=== PATIENT | male | born 1980 | race African-American/Black ===

== ENCOUNTER 2017-04-26 14:29 | Inpatient (IN) | payer MEDICARE, BC ==
[2017-04-26 19:30] LABS: ADD MAN DIFF? NO
[2017-04-26 19:33] LABS: BASOPHILS % 0.4 % (0.0-2.0); EOSINOPHILS # 0.1 10^3/ul (0.0-0.5); EOSINOPHILS % 0.8 % (0.0-7.0); HEMOGLOBIN 10.8 g/dl (14.0-18.0); LYMPHOCYTES # 2.9 10^3/ul (0.8-2.9); LYMPHOCYTES % 34.9 % (15.0-51.0); MEAN CORPUSCULAR HEMOGLOBIN 25.1 pg (29.0-33.0); MEAN CORPUSCULAR HGB CONC 30.9 g/dl (32.0-37.0); MEAN CORPUSCULAR VOLUME 81.2 fl (82.0-101.0); MEAN PLATELET VOLUME 10.3 fl (7.4-10.4); MONOCYTE # 0.6 10^3/ul (0.3-0.9); MONOCYTES % 7.5 % (0.0-11.0); NEUTROPHIL # 4.7 10^3/ul (1.6-7.5); PLATELET COUNT 262 10^3/UL (140-415); RED BLOOD COUNT 4.31 10^6/ul (4.70-6.10); RED CELL DISTRIBUTION WIDTH 19.5 % (11.5-14.5)
[2017-04-26 19:33] LABS: WHITE BLOOD COUNT 8.4 10^3/ul (4.8-10.8)
[2017-04-26 20:29] LABS: AMMONIA 16 umol/l (9-30)
[2017-04-26 20:36] LABS: ALANINE AMINOTRANSFERASE 47 IU/L (13-69); ALBUMIN 3.1 g/dl (3.3-4.9); ALBUMIN/GLOBULIN RATIO 0.77; ALKALINE PHOSPHATASE 398 IU/L (42-121); ANION GAP 15 (8-16); ASPARTATE AMINO TRANSFERASE 33 IU/L (15-46); BILIRUBIN,INDIRECT 1.3 mg/dl (0-1.1); BILIRUBIN,TOTAL 1.3 mg/dl (0.2-1.3); BLOOD UREA NITROGEN 8 mg/dl (7-20); CALCIUM 8.4 mg/dl (8.4-10.2); CARBON DIOXIDE 25 mmol/L (21-31); CHLORIDE 99 mmol/L (97-110); CREATININE 0.73 mg/dl (0.61-1.24); GLUCOSE 307 mg/dl (70-220); POTASSIUM 4.6 mmol/L (3.5-5.1); SODIUM 134 mmol/L (135-144); TOTAL PROTEIN 7.1 g/dl (6.1-8.1)
[2017-04-26 20:38] LABS: ETHANOL < 10.0 mg/dl
[2017-04-26] MEDS ORDERED: METOPROLOL 25 MG TAB PO (21:30)
[2017-04-26] MEDS ORDERED: NACL 0.9% 3 ML SYG IV (21:30)
[2017-04-26] MEDS ORDERED: ASPIRIN (EC) 325 MG TAB PO (21:30)
[2017-04-26] MEDS ORDERED: HYDROCODONE/APAP (5/325) TAB PO (21:30)
[2017-04-26] MEDS ORDERED: HYDROmorphONE 0.5 MG/0.5 ML SYG IV (21:30)
[2017-04-26] MEDS ORDERED: ACETAMINOPHEN 325 MG TAB PO ×2 (21:30→22:00)
[2017-04-26] MEDS ORDERED: DOCUSATE SODIUM 100 MG CAP PO (21:30)
[2017-04-26] MEDS ORDERED: ONDANSETRON 4 MG INJ IV ×2 (21:30→22:00)
[2017-04-26] MEDS ORDERED: BISACODYL (EC) 5 MG TAB PO (21:30)
[2017-04-26] MEDS ORDERED: ZOLPIDEM 5 MG TAB PO (22:00)
[2017-04-26] MEDS ORDERED: FLUPHENAZINE 5 MG TAB PO (22:00)
[2017-04-26 22:07] LABS: CREATINE KINASE 85 IU/L (23-200)
[2017-04-26 22:18] LABS: PARTIAL THROMBOPLASTIN TIME 27.2 Sec (25.0-35.0)
[2017-04-26 22:21] LABS: CK-MB 0.69 ng/ml (0.0-2.4)
[2017-04-26] MEDS ORDERED: NICOTINE POLACRILEX 2 MG GUM BUCCAL (22:30)
[2017-04-26] MEDS: HEPARIN 1000 UNITS/ML 10 ML INJ IV (22:49)
[2017-04-26] MEDS: HEPARIN 25000 UNITS/250 ML 250 ML IV (22:58)
[2017-04-26] MEDS: NITROGLYCERIN 2% 1 GM OINT PKT TD (23:00)
[2017-04-27 00:13] LABS: C-REACTIVE PROTEIN 3.1 mg/dl (0.0-0.9)
[2017-04-27] MEDS: SOD CHLORIDE 0.9% 1,000 ML IV ×3 (01:02→11:13)
[2017-04-27] MEDS: METOCLOPRAMIDE 10 MG INJ IV (01:09)
[2017-04-27 01:34] LABS: ADD UMIC YES; UR ASCORBIC ACID 20 mg/dL (NEGATIVE); UR BACTERIA FEW /HPF (NONE SEEN); UR BILIRUBIN (Dip) NEGATIVE (NEGATIVE); UR BLOOD (Dip) 1+ mg/dL (NEGATIVE); UR CLARITY SLIGHTLY CLOUDY (CLEAR); UR COLOR AMBER (YELLOW); UR GLUCOSE (Dip) 1+ mg/dL (NEGATIVE); UR KETONES (Dip) NEGATIVE (NEGATIVE); UR LEUKOCYTE ESTERASE (Dip) NEGATIVE Leu/ul (NEGATIVE); UR NITRITE (Dip) NEGATIVE (NEGATIVE); UR RBC 10 /HPF (0-5); UR SPECIFIC GRAVITY (Dip) 1.011 (1.003-1.030); UR TOTAL PROTEIN (Dip) 3+ mg/dl (NEGATIVE); UR UROBILINOGEN (Dip) 1+ mg/dL (NEGATIVE); UR WBC 7 /HPF (0-5)
[2017-04-27] MEDS: ASPIRIN (EC) 325 MG TAB PO ×2 (01:57→08:35)
[2017-04-27] MEDS: ATORVASTATIN 80 MG TAB PO (01:59)
[2017-04-27] MEDS: ACCU-CHEK XX (02:00)
[2017-04-27] MEDS: INSULIN GLARGINE [LANtus] 3 ML PEN SC ×2 (02:16→08:42)
[2017-04-27 02:34] LABS: CREATINE KINASE 59 IU/L (23-200)
[2017-04-27 02:45] LABS: CK INDEX 0.9
[2017-04-27 02:48] LABS: CK-MB 0.51 ng/ml (0.0-2.4)
[2017-04-27] MEDS: INSULIN ASPART [NOVOLOG] 3 ML PEN SC ×3 (03:33→12:00)
[2017-04-27] MEDS ORDERED: GLUCOSE GEL 15 GRAM TUBE BUCCAL (04:00)
[2017-04-27] MEDS ORDERED: GLUCOSE GEL 15 GRAM TUBE PO ×2 (04:00)
[2017-04-27] MEDS ORDERED: DEXTROSE 50% 50 ML SYRINGE IV ×2 (04:00)
[2017-04-27] MEDS ORDERED: GLUCAGON 1 MG INJ IM (04:00)
[2017-04-27 06:02] LABS: ADD MAN DIFF? NO
[2017-04-27 06:20] LABS: WHITE BLOOD COUNT 8.2 10^3/ul (4.8-10.8)
[2017-04-27 06:20] LABS: BASOPHILS % 0.5 % (0.0-2.0); EOSINOPHILS # 0.1 10^3/ul (0.0-0.5); EOSINOPHILS % 0.9 % (0.0-7.0); HEMATOCRIT 31.3 % (42.0-52.0); HEMOGLOBIN 9.9 g/dl (14.0-18.0); LYMPHOCYTES # 2.6 10^3/ul (0.8-2.9); LYMPHOCYTES % 32.2 % (15.0-51.0); MEAN CORPUSCULAR HEMOGLOBIN 25.3 pg (29.0-33.0); MEAN CORPUSCULAR HGB CONC 31.6 g/dl (32.0-37.0); MEAN CORPUSCULAR VOLUME 80.1 fl (82.0-101.0); MEAN PLATELET VOLUME 10.9 fl (7.4-10.4); MONOCYTE # 0.6 10^3/ul (0.3-0.9); MONOCYTES % 7.3 % (0.0-11.0); NEUTROPHIL # 4.8 10^3/ul (1.6-7.5); NEUTROPHILS % 58.9 % (39.0-77.0); PLATELET COUNT 263 10^3/UL (140-415); RED BLOOD COUNT 3.91 10^6/ul (4.70-6.10); RED CELL DISTRIBUTION WIDTH 20.1 % (11.5-14.5)
[2017-04-27 06:39] LABS: INR 1.23; PROTIME 15.7 Sec (11.9-14.9); PT RATIO 1.2
[2017-04-27 06:40] LABS: PARTIAL THROMBOPLASTIN TIME 44.5 Sec (25.0-35.0)
[2017-04-27 06:44] LABS: ALANINE AMINOTRANSFERASE 48 IU/L (13-69); ALBUMIN 2.7 g/dl (3.3-4.9); ALBUMIN/GLOBULIN RATIO 0.71; ALKALINE PHOSPHATASE 359 IU/L (42-121); ANION GAP 13 (8-16); ASPARTATE AMINO TRANSFERASE 29 IU/L (15-46); BILIRUBIN,INDIRECT 1.1 mg/dl (0-1.1); BILIRUBIN,TOTAL 1.1 mg/dl (0.2-1.3); BLOOD UREA NITROGEN 8 mg/dl (7-20); CALCIUM 8.3 mg/dl (8.4-10.2); CARBON DIOXIDE 26 mmol/L (21-31); CHLORIDE 100 mmol/L (97-110); CHOL/HDL RATIO 4.3 RATIO; CHOLESTEROL 86 mg/dl (100-200); CREATININE 0.78 mg/dl (0.61-1.24); GLUCOSE 289 mg/dl (70-220); HDL CHOLESTEROL 20 mg/dl (28-63); LDL CHOLESTEROL,CALCULATED 53 mg/dl; MAGNESIUM 1.5 mg/dl (1.7-2.5); POTASSIUM 4.4 mmol/L (3.5-5.1); SODIUM 135 mmol/L (135-144); TOTAL PROTEIN 6.5 g/dl (6.1-8.1); TRIGLYCERIDES 66 mg/dl (0-149)
[2017-04-27 06:49] LABS: HEMOGLOBIN A1C 10.6 % (0-5.9)
[2017-04-27] MEDS: HEPARIN 1000 UNITS/ML 10 ML INJ IV (06:55)
[2017-04-27] MEDS: HEPARIN 25000 UNITS/250 ML 250 ML IV ×2 (06:58→14:19)
[2017-04-27] MEDS ORDERED: INSULIN ASPART [NOVOLOG] 3 ML PEN SC ×3 (08:00→12:00)
[2017-04-27 08:15] LABS: AMPHETAMINE/METHAMPHETAMINE Negative (NEGATIVE); BARBITURATES Negative (NEGATIVE); BENZODIAZEPINES Negative (NEGATIVE); CANNABINOIDS Negative (NEGATIVE); COCAINE Negative (NEGATIVE); OPIATES Negative (NEGATIVE)
[2017-04-27] MEDS: FAMOTIDINE 20 MG INJ IV (08:34)
[2017-04-27] MEDS: LORAZEPAM 2 MG INJ IV ×2 (08:34→14:42)
[2017-04-27] MEDS: LISINOPRIL 10 MG TAB PO (08:36)
[2017-04-27] MEDS: CALCIUM CARBONATE 500 MG CHEW TAB PO ×2 (08:36→12:34)
[2017-04-27] MEDS: NICOTINE (21 MG/24 HR) PATCH TRANSDERM (08:37)
[2017-04-27 09:40] LABS: CREATINE KINASE 52 IU/L (23-200)
[2017-04-27 09:53] LABS: CK-MB 0.51 ng/ml (0.0-2.4); TROPONIN-I 0.574 ng/ml (0.00-0.12)
[2017-04-27 14:01] LABS: PARTIAL THROMBOPLASTIN TIME 104.7 Sec (25.0-35.0)
[2017-04-28] MEDS ORDERED: ASPIRIN 81 MG TAB PO (09:00)
== END 2017-04-27 17:17 | disposition home or self-care (01) | DRG 948 ==
LOC: E/R 14:29 → MS4 21:41
PROVIDERS: Hospitalist
DX: R53.1 Weakness (principal); I42.9 Cardiomyopathy, unspecified; I50.22 Chronic systolic (congestive) heart failure; I11.0 Hypertensive heart disease with heart failure; E11.42 Type 2 diabetes mellitus with diabetic polyneuropathy; E66.01 Morbid (severe) obesity due to excess calories; E11.51 Type 2 diabetes mellitus with diabetic peripheral angiopathy without gangrene; E11.621 Type 2 diabetes mellitus with foot ulcer; L97.529 Non-pressure chronic ulcer of other part of left foot with unspecified severity; L97.519 Non-pressure chronic ulcer of other part of right foot with unspecified severity; E11.65 Type 2 diabetes mellitus with hyperglycemia; E86.0 Dehydration; R11.2 Nausea with vomiting, unspecified; E78.5 Hyperlipidemia, unspecified; M24.571 Contracture, right ankle; Z72.0 Tobacco use; F20.9 Schizophrenia, unspecified; R74.8 Abnormal levels of other serum enzymes; Z79.82 Long term (current) use of aspirin; Z79.4 Long term (current) use of insulin; Z82.49 Family history of ischemic heart disease and other diseases of the circulatory system; Z83.3 Family history of diabetes mellitus
CPT/HCPCS: 36415; 70450; 71045; 80053; 80061; 80306; 80307; 81001; 82140; 82550; 82553; 82962; 83036; 83735; 84443; 84484; 85025; 85610; 85730; 86140; 87086; 93005; 93306; 96374; 96375; 99285-25

== ENCOUNTER 2017-05-25 15:57 | Inpatient (IN) | payer MEDICARE, BC ==
[2017-05-25] MEDS ORDERED: GLUCOSE GEL 15 GRAM TUBE (16:48)
[2017-05-25] MEDS: ONDANSETRON 4 MG INJ IV (17:29)
[2017-05-25] MEDS: DEXTROSE 50% 50 ML SYRINGE IV (17:29)
[2017-05-25] MEDS: SOD CHLORIDE 0.9% 1,000 ML IV (17:29)
[2017-05-25 18:06] LABS: ADD MAN DIFF? NO
[2017-05-25 18:10] LABS: ABNORMAL IP MESSAGE 1; BASOPHILS % 0.3 % (0.0-2.0); EOSINOPHILS % 0.2 % (0.0-7.0); HEMATOCRIT 34.9 % (42.0-52.0); HEMOGLOBIN 11.4 g/dl (14.0-18.0); LYMPHOCYTES # 2.9 10^3/ul (0.8-2.9); LYMPHOCYTES % 22.3 % (15.0-51.0); MEAN CORPUSCULAR HEMOGLOBIN 25.1 pg (29.0-33.0); MEAN CORPUSCULAR HGB CONC 32.7 g/dl (32.0-37.0); MEAN CORPUSCULAR VOLUME 76.7 fl (82.0-101.0); MEAN PLATELET VOLUME 10.9 fl (7.4-10.4); MONOCYTE # 1.7 10^3/ul (0.3-0.9); NEUTROPHIL # 8.2 10^3/ul (1.6-7.5); NEUTROPHILS % 63.7 % (39.0-77.0); PLATELET COUNT 152 10^3/UL (140-415); POSITIVE DIFF @See below; RED BLOOD COUNT 4.55 10^6/ul (4.70-6.10); RED CELL DISTRIBUTION WIDTH 20.7 % (11.5-14.5)
[2017-05-25 18:10] LABS: WHITE BLOOD COUNT 12.9 10^3/ul (4.8-10.8)
[2017-05-25] MEDS: DEXTROSE 5%-0.9% NACL 1,000 ML IV (19:12)
[2017-05-25] MEDS ORDERED: NACL 0.9% 3 ML SYG IV (20:00)
[2017-05-25] MEDS ORDERED: ZOLPIDEM 5 MG TAB PO (20:00)
[2017-05-25] MEDS ORDERED: ONDANSETRON 4 MG INJ IV (20:00)
[2017-05-25] MEDS ORDERED: ACETAMINOPHEN 325 MG TAB PO ×2 (20:00)
[2017-05-25] MEDS ORDERED: HYDROCODONE/APAP (5/325) TAB PO (20:00)
[2017-05-25] MEDS ORDERED: NICOTINE POLACRILEX 2 MG GUM BUCCAL (20:00)
[2017-05-25] MEDS ORDERED: BISACODYL (EC) 5 MG TAB PO (20:00)
[2017-05-25] MEDS ORDERED: DOCUSATE SODIUM 100 MG CAP PO (20:00)
[2017-05-25 20:06] LABS: ALANINE AMINOTRANSFERASE 73 IU/L (13-69); ALBUMIN/GLOBULIN RATIO 0.61; ALKALINE PHOSPHATASE 421 IU/L (42-121); ANION GAP 24 (8-16); ASPARTATE AMINO TRANSFERASE 170 IU/L (15-46); BILIRUBIN,TOTAL 3.4 mg/dl (0.2-1.3); BLOOD UREA NITROGEN 23 mg/dl (7-20); CALCIUM 7.9 mg/dl (8.4-10.2); CARBON DIOXIDE 16 mmol/L (21-31); CHLORIDE 88 mmol/L (97-110); GLUCOSE 81 mg/dl (70-220); POTASSIUM 5.4 mmol/L (3.5-5.1); SODIUM 123 mmol/L (135-144); TOTAL PROTEIN 7.9 g/dl (6.1-8.1)
[2017-05-25] MEDS: QUETIAPINE 25 MG TAB PO (21:00)
[2017-05-25] MEDS: METOCLOPRAMIDE 10 MG INJ IV (21:15)
[2017-05-25] MEDS: FAMOTIDINE 20 MG INJ IV (21:15)
[2017-05-25 22:10] LABS: ADD UMIC YES; UR ASCORBIC ACID 40 mg/dL (NEGATIVE); UR BACTERIA FEW /HPF (NONE SEEN); UR BILIRUBIN (Dip) 1+ mg/dL (NEGATIVE); UR BLOOD (Dip) 1+ mg/dL (NEGATIVE); UR CLARITY SLIGHTLY CLOUDY (CLEAR); UR COLOR AMBER (YELLOW); UR GLUCOSE (Dip) 2+ mg/dL (NEGATIVE); UR HYALINE CAST FEW /HPF (NONE SEEN); UR KETONES (Dip) NEGATIVE (NEGATIVE); UR LEUKOCYTE ESTERASE (Dip) TRACE Leu/ul (NEGATIVE); UR NITRITE (Dip) NEGATIVE (NEGATIVE); UR RBC 1 /HPF (0-5); UR SPECIFIC GRAVITY (Dip) 1.019 (1.003-1.030); UR SQUAMOUS EPITHELIAL CELL FEW /HPF (FEW); UR TOTAL PROTEIN (Dip) 2+ mg/dl (NEGATIVE); UR UROBILINOGEN (Dip) 2+ mg/dL (NEGATIVE); UR WBC 8 /HPF (0-5)
[2017-05-25 22:39] LABS: AMPHETAMINE/METHAMPHETAMINE Negative (NEGATIVE); BARBITURATES Negative (NEGATIVE); BENZODIAZEPINES Negative (NEGATIVE); COCAINE Negative (NEGATIVE)
[2017-05-25 23:02] LABS: OPIATES Negative (NEGATIVE)
[2017-05-25 23:05] LABS: CANNABINOIDS Negative (NEGATIVE)
[2017-05-25] MEDS: SODIUM CHLORIDE 0.9% 1L BAG IV* (23:30)
[2017-05-26 00:43] LABS: LIPASE 43 U/L (23-300)
[2017-05-26] MEDS: QUETIAPINE 25 MG TAB PO (00:53)
[2017-05-26] MEDS: DEXTROSE 5%-0.9% NACL 1,000 ML IV ×3 (00:53→22:18)
[2017-05-26] MEDS: CEFTRIAXONE 1 GM/50 ML (PMX) 50 ML IVPB (00:54)
[2017-05-26] MEDS: METOCLOPRAMIDE 10 MG INJ IV ×4 (00:54→18:26)
[2017-05-26 01:04] LABS: LACTIC ACID 8.5 mmol/L (0.5-2.0)
[2017-05-26] MEDS: SOD CHLORIDE 0.9% 500 ML IV ×2 (01:52→12:13)
[2017-05-26] MEDS: SOD CHLORIDE 0.9% 1,000 ML IV ×4 (01:52→22:17)
[2017-05-26] MEDS: ACCU-CHEK XX ×5 (05:00→21:24)
[2017-05-26] MEDS ORDERED: DEXTROSE 50% 50 ML SYRINGE (05:33)
[2017-05-26] MEDS: LORAZEPAM 2 MG INJ IV (05:53)
[2017-05-26] MEDS ORDERED: VANCOMYCIN 1 GM 250 ML IVPB (08:00)
[2017-05-26] MEDS: ASPIRIN 81 MG TAB PO (08:28)
[2017-05-26] MEDS: NICOTINE (21 MG/24 HR) PATCH TRANSDERM (08:29)
[2017-05-26] MEDS: FAMOTIDINE 20 MG INJ IV (08:30)
[2017-05-26] MEDS ORDERED: LISINOPRIL 10 MG TAB PO (09:00)
[2017-05-26] MEDS ORDERED: ENOXAPARIN 40 MG/0.4 ML SYG SC (09:00)
[2017-05-26 09:28] LABS: ADD MAN DIFF? NO
[2017-05-26 09:44] LABS: ABNORMAL IP MESSAGE 1; BASOPHILS % 0.2 % (0.0-2.0); EOSINOPHILS % 0.1 % (0.0-7.0); HEMATOCRIT 33.1 % (42.0-52.0); LYMPHOCYTES # 2.6 10^3/ul (0.8-2.9); LYMPHOCYTES % 20.7 % (15.0-51.0); MEAN CORPUSCULAR HEMOGLOBIN 24.8 pg (29.0-33.0); MEAN CORPUSCULAR HGB CONC 33.2 g/dl (32.0-37.0); MEAN CORPUSCULAR VOLUME 74.7 fl (82.0-101.0); MEAN PLATELET VOLUME 11.5 fl (7.4-10.4); MONOCYTE # 1.6 10^3/ul (0.3-0.9); MONOCYTES % 12.1 % (0.0-11.0); NEUTROPHIL # 8.5 10^3/ul (1.6-7.5); NEUTROPHILS % 66.4 % (39.0-77.0); PLATELET COUNT 150 10^3/UL (140-415); POSITIVE DIFF @See below; RED BLOOD COUNT 4.43 10^6/ul (4.70-6.10); RED CELL DISTRIBUTION WIDTH 19.6 % (11.5-14.5)
[2017-05-26 09:44] LABS: WHITE BLOOD COUNT 12.8 10^3/ul (4.8-10.8)
[2017-05-26 09:58] LABS: HEMOGLOBIN A1C 7.7 % (0-5.9)
[2017-05-26 10:06] LABS: LACTIC ACID 8.1 mmol/L (0.5-2.0)
[2017-05-26 10:15] LABS: ALANINE AMINOTRANSFERASE 184 IU/L (13-69); ALBUMIN 2.6 g/dl (3.3-4.9); ALBUMIN/GLOBULIN RATIO 0.59; ALKALINE PHOSPHATASE 424 IU/L (42-121); ANION GAP 20 (8-16); ASPARTATE AMINO TRANSFERASE 455 IU/L (15-46); BILIRUBIN,INDIRECT 1.7 mg/dl (0-1.1); BILIRUBIN,TOTAL 4.1 mg/dl (0.2-1.3); BLOOD UREA NITROGEN 21 mg/dl (7-20); CALCIUM 7.6 mg/dl (8.4-10.2); CARBON DIOXIDE 20 mmol/L (21-31); CHLORIDE 90 mmol/L (97-110); CHOL/HDL RATIO 4.2 RATIO; CHOLESTEROL 51 mg/dl (100-200); CREATININE 1.06 mg/dl (0.61-1.24); GLUCOSE 89 mg/dl (70-220); HDL CHOLESTEROL 12 mg/dl (28-63); LDL CHOLESTEROL,CALCULATED 26 mg/dl; MAGNESIUM 1.7 mg/dl (1.7-2.5); POTASSIUM 5.3 mmol/L (3.5-5.1); SODIUM 125 mmol/L (135-144); TRIGLYCERIDES 63 mg/dl (0-149)
[2017-05-26] MEDS: OXYCODONE/ACETAMINOPHEN (5/325) TAB PO (11:20)
[2017-05-26 12:41] LABS: AADO2 Arterial 44.9 mmHg (7.0-24.0); Allen Test ACCEPTAB; Arterial Base Excess -6.1 mmol/L (-3.0-3); Arterial Blood Gas Oxygen Sat 89.1 mmHG (95.0-98.0); Arterial COHb 1.3 % (0.0-3.0); Arterial Fraction of Oxyhgb 87.5 % (93.0-99.0); Arterial HCO3 18.6 mmol/L (22.0-26.0); Arterial MetHb 0.5 % (0.0-1.5); Arterial Total Hemglobin 12.2 g/dl (12.0-18.0); Arterial pCO2 34.2 mmhg (35-45); MODE ROOM AIR; Site Right Radial
[2017-05-26] MEDS: DEXTROSE 50% 50 ML SYRINGE IV (12:58)
[2017-05-26] MEDS ORDERED: GLUCOSE GEL 15 GRAM TUBE PO ×2 (13:00)
[2017-05-26] MEDS ORDERED: GLUCOSE GEL 15 GRAM TUBE BUCCAL (13:00)
[2017-05-26] MEDS ORDERED: DEXTROSE 50% 50 ML SYRINGE IV ×2 (13:00)
[2017-05-26] MEDS ORDERED: GLUCAGON 1 MG INJ IM (13:00)
[2017-05-26] MEDS: LIDOCAINE 1% (MPF) 5 ML VIAL SC (14:00)
[2017-05-26 14:04] LABS: CREATINE KINASE 243 IU/L (23-200)
[2017-05-26 14:06] LABS: SALICYLATE < 1.0 mg/dl (5.0-30.0)
[2017-05-26 14:13] LABS: CK-MB 2.31 ng/ml (0.0-2.4); TROPONIN-I 0.027 ng/ml (0.00-0.12)
[2017-05-26 14:13] LABS: LACTIC ACID 8.3 mmol/L (0.5-2.0)
[2017-05-26] MEDS: COSYNTROPIN 0.25 MG INJ IV (14:25)
[2017-05-26 16:15] LABS: LACTIC ACID 8.5 mmol/L (0.5-2.0)
[2017-05-26 17:05] LABS: LACTIC ACID 8.6 mmol/L (0.5-2.0)
[2017-05-26] MEDS: SOD CHLORIDE 0.9% IV (18:56)
[2017-05-26] MEDS ORDERED: VANCOMYCIN IV PER PHARMACY XX ×2 (19:00)
[2017-05-26 20:30] LABS: LACTIC ACID 7.7 mmol/L (0.5-2.0)
[2017-05-26 20:42] LABS: Allen Test ACCEPTAB; Arterial Blood Gas Oxygen Sat 94.4 mmHG (95.0-98.0); Arterial COHb 1.6 % (0.0-3.0); Arterial Fraction of Oxyhgb 92.5 % (93.0-99.0); Arterial MetHb 0.4 % (0.0-1.5); Arterial Total Hemglobin 12.6 g/dl (12.0-18.0); Arterial pCO2 29.1 mmhg (35-45); MODE ROOM AIR; Site Left Radial
[2017-05-26 21:17] LABS: CREATINE KINASE 235 IU/L (23-200)
[2017-05-26 21:31] LABS: CK INDEX 1.2; TROPONIN-I 0.027 ng/ml (0.00-0.12)
[2017-05-26 21:33] LABS: CK-MB 2.88 ng/ml (0.0-2.4)
[2017-05-26] MEDS ORDERED: MEROPENEM 1 GM/50ML(PMX) 50 ML IVPB (22:00)
[2017-05-26] MEDS ORDERED: NORepinephrine 8MG/250 ML (PMX 250 ML IV (22:00)
[2017-05-26] MEDS ORDERED: IMIPENEM-CILAST 500MG IV (PMX) 100 ML IVPB (22:00)
[2017-05-26] MEDS: VANCOMYCIN 2 GM in SOD CHLORIDE 0.9% 500 ML IVPB (22:16)
[2017-05-26] MEDS: CASPOFUNGIN 70 MG in SOD CHLORIDE 0.9% 250 ML IVPB (22:16)
[2017-05-26] MEDS: MEROPENEM 1 GM/50ML(PMX) 50 ML IVPB (22:16)
[2017-05-26 22:58] LABS: ERYTHROCYTE SEDIMENTATION RATE 1 mm/Hr (0-15)
[2017-05-27] MEDS: ACCU-CHEK XX ×6 (01:06→21:22)
[2017-05-27 01:30] LABS: CREATINE KINASE 218 IU/L (23-200)
[2017-05-27 01:40] LABS: CK INDEX 1.4; TROPONIN-I 0.032 ng/ml (0.00-0.12)
[2017-05-27 01:46] LABS: CK-MB 3.09 ng/ml (0.0-2.4)
[2017-05-27] MEDS: METOCLOPRAMIDE 10 MG INJ IV ×4 (06:00→17:28)
[2017-05-27 06:04] LABS: LACTIC ACID 11.7 mmol/L (0.5-2.0)
[2017-05-27] MEDS: MEROPENEM 1 GM/50ML(PMX) 50 ML IVPB ×3 (06:09→21:22)
[2017-05-27] MEDS: PANTOPRAZOLE 40 MG INJ IV (06:09)
[2017-05-27 06:13] LABS: MAGNESIUM 1.6 mg/dl (1.7-2.5)
[2017-05-27 06:16] LABS: ALBUMIN/GLOBULIN RATIO 0.57; ANION GAP 26 (8-16)
[2017-05-27 06:19] LABS: ALANINE AMINOTRANSFERASE 652 IU/L (13-69); ALBUMIN 2.6 g/dl (3.3-4.9); ALKALINE PHOSPHATASE 391 IU/L (42-121); BILIRUBIN,INDIRECT 1.9 mg/dl (0-1.1); BILIRUBIN,TOTAL 5.4 mg/dl (0.2-1.3); BLOOD UREA NITROGEN 24 mg/dl (7-20); CALCIUM 7.7 mg/dl (8.4-10.2); CARBON DIOXIDE 12 mmol/L (21-31); CHLORIDE 95 mmol/L (97-110); CREATININE 1.37 mg/dl (0.61-1.24); GLUCOSE 78 mg/dl (70-220); SODIUM 127 mmol/L (135-144); TOTAL PROTEIN 7.1 g/dl (6.1-8.1)
[2017-05-27 06:23] LABS: POTASSIUM 6.2 mmol/L (3.5-5.1)
[2017-05-27 06:49] LABS: ASPARTATE AMINO TRANSFERASE 1900 IU/L (15-46)
[2017-05-27] MEDS: SOD CHLORIDE 0.9% 1,000 ML IV ×2 (06:58→08:19)
[2017-05-27] MEDS ORDERED: DEXTROSE 50% 50 ML SYRINGE IV (07:00)
[2017-05-27] MEDS ORDERED: SODIUM BICARBONATE (IV ADD) 100 MEQ in DEXTROSE 5% 900 ML IV (07:00)
[2017-05-27 07:04] LABS: CREATINE KINASE 218 IU/L (23-200)
[2017-05-27 07:17] LABS: CK INDEX 1.7; TROPONIN-I 0.035 ng/ml (0.00-0.12)
[2017-05-27 07:18] LABS: Allen Test ACCEPTAB; Arterial Base Excess -10.3 mmol/L (-3.0-3); Arterial Blood Gas Oxygen Sat 95.1 mmHG (95.0-98.0); Arterial COHb 1.7 % (0.0-3.0); Arterial Fraction of Oxyhgb 92.9 % (93.0-99.0); Arterial HCO3 13.8 mmol/L (22.0-26.0); Arterial MetHb 0.6 % (0.0-1.5); Arterial Total Hemglobin 11.7 g/dl (12.0-18.0); MODE ROOM AIR; Site Right Radial
[2017-05-27 07:34] LABS: CK-MB 3.75 ng/ml (0.0-2.4)
[2017-05-27] MEDS: NA BICARBONATE 8.4% 50 ML SYG IV ×2 (07:57→08:19)
[2017-05-27] MEDS: CA CHLORIDE 10% 10 ML SYRINGE IV (07:57)
[2017-05-27] MEDS: DEXTROSE 5%-0.9% NACL 1,000 ML IV (07:58)
[2017-05-27] MEDS: ALBUTEROL 0.5% (NEB) 2.5 MG/0.5 ML AMP INH (08:00)
[2017-05-27 08:03] LABS: CREATINE KINASE 210 IU/L (23-200)
[2017-05-27] MEDS: NA POLYST SULFON 15 GM/60 ML BTL PR (08:05)
[2017-05-27] MEDS: INSULIN REGULAR, HUMAN 100 UNIT/1 ML 3ML VIAL IVP (08:10)
[2017-05-27] MEDS: ASPIRIN 81 MG TAB PO (09:00)
[2017-05-27 09:03] LABS: HAAIG REFLEX REFLEX FILED
[2017-05-27] MEDS: NICOTINE (21 MG/24 HR) PATCH TRANSDERM (09:08)
[2017-05-27 09:35] LABS: ANION GAP 23 (8-16); BLOOD UREA NITROGEN 26 mg/dl (7-20); CARBON DIOXIDE 15 mmol/L (21-31); CHLORIDE 96 mmol/L (97-110); CREATININE 1.33 mg/dl (0.61-1.24); GLUCOSE 120 mg/dl (70-220); POTASSIUM 5.6 mmol/L (3.5-5.1); SODIUM 128 mmol/L (135-144)
[2017-05-27] MEDS: VANCOMYCIN 1 GM 250 ML IVPB ×2 (09:56→21:22)
[2017-05-27] MEDS: ALBUMIN HUMAN 25% 100 ML IV (11:35)
[2017-05-27] MEDS: FUROSEMIDE 40 MG INJ IV (11:35)
[2017-05-27] MEDS: SOD CHLORIDE 0.9% 500 ML IV (11:39)
[2017-05-27] MEDS: SODIUM BICARBONATE (IV ADD) 100 MEQ in DEXTROSE 5% 1,000 ML IV ×3 (12:00→18:00)
[2017-05-27 12:17] LABS: AMMONIA < 9 umol/l (9-30)
[2017-05-27 12:19] LABS: SODIUM,URINE RANDOM < 13 mmol/L (30-90)
[2017-05-27 12:25] LABS: LACTIC ACID 10.6 mmol/L (0.5-2.0)
[2017-05-27 13:12] LABS: HEPATITIS B SURFACE ANTIGEN NEGATIVE (NEGATIVE)
[2017-05-27 13:29] LABS: HEPATITIS B CORE ANTIBODY NEGATIVE (NEGATIVE)
[2017-05-27 13:30] LABS: HEPATITIS C VIRAL ANTIBODY REACTIVE (NEGATIVE)
[2017-05-27 13:45] LABS: ANION GAP 22 (8-16); BLOOD UREA NITROGEN 29 mg/dl (7-20); CALCIUM 8.1 mg/dl (8.4-10.2); CARBON DIOXIDE 16 mmol/L (21-31); CHLORIDE 96 mmol/L (97-110); CREATININE 1.46 mg/dl (0.61-1.24); GLUCOSE 107 mg/dl (70-220); POTASSIUM 5.8 mmol/L (3.5-5.1); SODIUM 128 mmol/L (135-144)
[2017-05-27 17:49] LABS: ANION GAP 22 (8-16); BLOOD UREA NITROGEN 32 mg/dl (7-20); CALCIUM 8.3 mg/dl (8.4-10.2); CARBON DIOXIDE 19 mmol/L (21-31); CHLORIDE 94 mmol/L (97-110); CREATININE 1.46 mg/dl (0.61-1.24); GLUCOSE 111 mg/dl (70-220); MAGNESIUM 1.5 mg/dl (1.7-2.5); POTASSIUM 5.5 mmol/L (3.5-5.1); SODIUM 129 mmol/L (135-144)
[2017-05-27 17:59] LABS: LACTIC ACID 10.9 mmol/L (0.5-2.0)
[2017-05-27] MEDS: ENOXAPARIN 60 MG/0.6 ML SYG SC ×2 (18:47→22:13)
[2017-05-27] MEDS: CASPOFUNGIN 50 MG in SOD CHLORIDE 0.9% 250 ML IVPB (21:24)
[2017-05-28] MEDS: ACCU-CHEK XX ×6 (01:00→21:10)
[2017-05-28 01:10] LABS: LACTIC ACID 8.8 mmol/L (0.5-2.0)
[2017-05-28] MEDS: MEROPENEM 1 GM/50ML(PMX) 50 ML IVPB ×3 (06:23→23:04)
[2017-05-28] MEDS: PANTOPRAZOLE 40 MG INJ IV (06:23)
[2017-05-28 06:34] LABS: LACTIC ACID 8.6 mmol/L (0.5-2.0)
[2017-05-28 06:53] LABS: ANION GAP 17 (8-16); BLOOD UREA NITROGEN 36 mg/dl (7-20); CALCIUM 7.5 mg/dl (8.4-10.2); CARBON DIOXIDE 21 mmol/L (21-31); CHLORIDE 93 mmol/L (97-110); CREATININE 1.45 mg/dl (0.61-1.24); GLUCOSE 148 mg/dl (70-220); SODIUM 126 mmol/L (135-144)
[2017-05-28] MEDS: NICOTINE (21 MG/24 HR) PATCH TRANSDERM (08:17)
[2017-05-28] MEDS: ASPIRIN 81 MG TAB PO (08:17)
[2017-05-28] MEDS: ENOXAPARIN 60 MG/0.6 ML SYG SC ×2 (08:19→21:05)
[2017-05-28 08:43] LABS: ADD MAN DIFF? NO
[2017-05-28 08:45] LABS: WHITE BLOOD COUNT 14.6 10^3/ul (4.8-10.8)
[2017-05-28 08:45] LABS: BASOPHILS % 0.1 % (0.0-2.0); EOSINOPHILS % 0.1 % (0.0-7.0); HEMATOCRIT 26.9 % (42.0-52.0); HEMOGLOBIN 9.2 g/dl (14.0-18.0); LYMPHOCYTES # 1.8 10^3/ul (0.8-2.9); LYMPHOCYTES % 12.6 % (15.0-51.0); MEAN CORPUSCULAR HEMOGLOBIN 25.6 pg (29.0-33.0); MEAN CORPUSCULAR HGB CONC 34.2 g/dl (32.0-37.0); MEAN CORPUSCULAR VOLUME 74.7 fl (82.0-101.0); MEAN PLATELET VOLUME 11.2 fl (7.4-10.4); MONOCYTE # 0.9 10^3/ul (0.3-0.9); MONOCYTES % 6.1 % (0.0-11.0); NEUTROPHIL # 11.7 10^3/ul (1.6-7.5); NEUTROPHILS % 80.1 % (39.0-77.0); NUCLEATED RED BLOOD CELLS% 0.2 /100WBC (0.0-0.0); PLATELET COUNT 115 10^3/UL (140-415); RED CELL DISTRIBUTION WIDTH 20.3 % (11.5-14.5)
[2017-05-28] MEDS: VANCOMYCIN 1 GM 250 ML IVPB (09:18)
[2017-05-28 10:08] LABS: ALBUMIN 1.9 g/dl (3.3-4.9); ALKALINE PHOSPHATASE 276 IU/L (42-121); BILIRUBIN,INDIRECT 2.7 mg/dl (0-1.1); BILIRUBIN,TOTAL 5.7 mg/dl (0.2-1.3); TOTAL PROTEIN 5.6 g/dl (6.1-8.1)
[2017-05-28 10:22] LABS: ALANINE AMINOTRANSFERASE 1079 IU/L (13-69)
[2017-05-28 10:45] LABS: ASPARTATE AMINO TRANSFERASE 2239 IU/L (15-46)
[2017-05-28] MEDS: SODIUM BICARBONATE (IV ADD) 100 MEQ in DEXTROSE 5% 1,000 ML IV (12:37)
[2017-05-28 13:31] LABS: LACTIC ACID 6.5 mmol/L (0.5-2.0)
[2017-05-28] MEDS: CASPOFUNGIN 50 MG in SOD CHLORIDE 0.9% 250 ML IVPB (21:01)
[2017-05-28] MEDS: VANCOMYCIN 750 MG in DEXTROSE 5% 150 ML IVPB (21:02)
[2017-05-29] MEDS: ACCU-CHEK XX ×3 (01:12→08:09)
[2017-05-29] MEDS: SODIUM BICARBONATE (IV ADD) 100 MEQ in DEXTROSE 5% 1,000 ML IV (01:14)
[2017-05-29 05:32] LABS: ADD MAN DIFF? NO; BASOPHILS % 0.2 % (0.0-2.0); EOSINOPHILS # 0.1 10^3/ul (0.0-0.5); EOSINOPHILS % 0.5 % (0.0-7.0); HEMATOCRIT 24.2 % (42.0-52.0); HEMOGLOBIN 8.3 g/dl (14.0-18.0); LYMPHOCYTES # 2.1 10^3/ul (0.8-2.9); LYMPHOCYTES % 19.5 % (15.0-51.0); MEAN CORPUSCULAR HEMOGLOBIN 25.4 pg (29.0-33.0); MEAN CORPUSCULAR HGB CONC 34.3 g/dl (32.0-37.0); MEAN PLATELET VOLUME 11.3 fl (7.4-10.4); MONOCYTE # 0.7 10^3/ul (0.3-0.9); MONOCYTES % 6.4 % (0.0-11.0); NEUTROPHIL # 7.7 10^3/ul (1.6-7.5); NEUTROPHILS % 72.6 % (39.0-77.0); NUCLEATED RED BLOOD CELLS% 0.3 /100WBC (0.0-0.0); PLATELET COUNT 114 10^3/UL (140-415); RED BLOOD COUNT 3.27 10^6/ul (4.70-6.10); RED CELL DISTRIBUTION WIDTH 20.5 % (11.5-14.5)
[2017-05-29 05:32] LABS: WHITE BLOOD COUNT 10.7 10^3/ul (4.8-10.8)
[2017-05-29] MEDS: PANTOPRAZOLE 40 MG INJ IV (05:38)
[2017-05-29] MEDS: MEROPENEM 1 GM/50ML(PMX) 50 ML IVPB ×3 (05:38→21:49)
[2017-05-29 06:22] LABS: ALANINE AMINOTRANSFERASE 836 IU/L (13-69); ALBUMIN/GLOBULIN RATIO 0.55; ALKALINE PHOSPHATASE 262 IU/L (42-121); ANION GAP 10 (8-16); BILIRUBIN,INDIRECT 3.3 mg/dl (0-1.1); BILIRUBIN,TOTAL 7.5 mg/dl (0.2-1.3); BLOOD UREA NITROGEN 36 mg/dl (7-20); CALCIUM 7.1 mg/dl (8.4-10.2); CARBON DIOXIDE 28 mmol/L (21-31); CHLORIDE 92 mmol/L (97-110); CREATININE 1.25 mg/dl (0.61-1.24); GLUCOSE 213 mg/dl (70-220); POTASSIUM 4.1 mmol/L (3.5-5.1); SODIUM 126 mmol/L (135-144); TOTAL PROTEIN 5.6 g/dl (6.1-8.1)
[2017-05-29 06:29] LABS: LACTIC ACID 3.8 mmol/L (0.5-2.0)
[2017-05-29 07:10] LABS: ASPARTATE AMINO TRANSFERASE 1325 IU/L (15-46)
[2017-05-29] MEDS: ASPIRIN 81 MG TAB PO (07:54)
[2017-05-29] MEDS: INSULIN ASPART [NOVOLOG] 3 ML PEN SC ×4 (08:00→20:36)
[2017-05-29] MEDS: NICOTINE (21 MG/24 HR) PATCH TRANSDERM (08:42)
[2017-05-29] MEDS: VANCOMYCIN 750 MG in DEXTROSE 5% 150 ML IVPB ×2 (08:42→20:49)
[2017-05-29] MEDS: SOD CHLORIDE 0.9% 1,000 ML IV ×2 (09:41→22:50)
[2017-05-29] MEDS: ONDANSETRON 4 MG INJ IV (19:07)
[2017-05-29] MEDS: CASPOFUNGIN 50 MG in SOD CHLORIDE 0.9% 250 ML IVPB (20:30)
[2017-05-30] MEDS: SOD CHLORIDE 0.9% 1,000 ML IV ×3 (02:34→21:52)
[2017-05-30 04:57] LABS: ADD MAN DIFF? NO
[2017-05-30 05:03] LABS: ABNORMAL IP MESSAGE 1; BASOPHILS % 0.2 % (0.0-2.0); EOSINOPHILS # 0.1 10^3/ul (0.0-0.5); EOSINOPHILS % 0.8 % (0.0-7.0); HEMATOCRIT 19.5 % (42.0-52.0); LYMPHOCYTES # 2.1 10^3/ul (0.8-2.9); LYMPHOCYTES % 17.8 % (15.0-51.0); MEAN CORPUSCULAR HEMOGLOBIN 25.2 pg (29.0-33.0); MEAN CORPUSCULAR HGB CONC 33.8 g/dl (32.0-37.0); MEAN CORPUSCULAR VOLUME 74.4 fl (82.0-101.0); MEAN PLATELET VOLUME 10.7 fl (7.4-10.4); MONOCYTE # 0.8 10^3/ul (0.3-0.9); MONOCYTES % 6.4 % (0.0-11.0); NEUTROPHIL # 8.7 10^3/ul (1.6-7.5); NUCLEATED RED BLOOD CELLS% 0.2 /100WBC (0.0-0.0); PLATELET COUNT 96 10^3/UL (140-415); POSITIVE DIFF @See below; RED BLOOD COUNT 2.62 10^6/ul (4.70-6.10); RED CELL DISTRIBUTION WIDTH 21.1 % (11.5-14.5)
[2017-05-30 05:03] LABS: WHITE BLOOD COUNT 11.8 10^3/ul (4.8-10.8)
[2017-05-30 05:14] LABS: HEMOGLOBIN 6.6 g/dl (14.0-18.0)
[2017-05-30 05:26] LABS: ALANINE AMINOTRANSFERASE 547 IU/L (13-69); ALBUMIN 1.6 g/dl (3.3-4.9); ALBUMIN/GLOBULIN RATIO 0.45; ALKALINE PHOSPHATASE 216 IU/L (42-121); ANION GAP 11 (8-16); ASPARTATE AMINO TRANSFERASE 571 IU/L (15-46); BILIRUBIN,INDIRECT 2.1 mg/dl (0-1.1); BILIRUBIN,TOTAL 6.7 mg/dl (0.2-1.3); BLOOD UREA NITROGEN 30 mg/dl (7-20); CARBON DIOXIDE 28 mmol/L (21-31); CHLORIDE 92 mmol/L (97-110); CREATININE 1.16 mg/dl (0.61-1.24); GLUCOSE 183 mg/dl (70-220); POTASSIUM 4.2 mmol/L (3.5-5.1); SODIUM 127 mmol/L (135-144); TOTAL PROTEIN 5.1 g/dl (6.1-8.1)
[2017-05-30 05:44] LABS: MAGNESIUM 1.6 mg/dl (1.7-2.5)
[2017-05-30] MEDS: PANTOPRAZOLE 40 MG INJ IV ×2 (05:50→06:50)
[2017-05-30] MEDS: MEROPENEM 1 GM/50ML(PMX) 50 ML IVPB ×3 (05:50→21:45)
[2017-05-30 07:16] LABS: PARTIAL THROMBOPLASTIN TIME 41.1 Sec (25.0-35.0)
[2017-05-30] MEDS: INSULIN ASPART [NOVOLOG] 3 ML PEN SC ×5 (09:14→21:47)
[2017-05-30 09:15] LABS: VANCOMYCIN,TROUGH 16.2 ug/ml (10.0-20.0)
[2017-05-30] MEDS: NICOTINE (21 MG/24 HR) PATCH TRANSDERM (09:17)
[2017-05-30] MEDS: VANCOMYCIN 750 MG in DEXTROSE 5% 150 ML IVPB ×2 (09:20→21:00)
[2017-05-30] MEDS: SOD CHLORIDE 0.9% 250 ML IV* (13:53)
[2017-05-30 16:27] LABS: IMMEDIATE SPIN CROSSMATCH 1
[2017-05-30] MEDS: CASPOFUNGIN 50 MG in SOD CHLORIDE 0.9% 250 ML IVPB (21:00)
[2017-05-31] MEDS: MEROPENEM 1 GM/50ML(PMX) 50 ML IVPB ×3 (06:14→22:19)
[2017-05-31] MEDS: NICOTINE (21 MG/24 HR) PATCH TRANSDERM (08:48)
[2017-05-31] MEDS: INSULIN ASPART [NOVOLOG] 3 ML PEN SC ×4 (08:52→22:21)
[2017-05-31] MEDS: VANCOMYCIN 750 MG in DEXTROSE 5% 150 ML IVPB ×2 (08:52→21:00)
[2017-05-31 08:56] LABS: ADD MAN DIFF? NO
[2017-05-31 09:07] LABS: WHITE BLOOD COUNT 15.1 10^3/ul (4.8-10.8)
[2017-05-31 09:07] LABS: ABNORMAL IP MESSAGE 1; BASOPHILS % 0.2 % (0.0-2.0); EOSINOPHILS # 0.1 10^3/ul (0.0-0.5); EOSINOPHILS % 0.9 % (0.0-7.0); HEMATOCRIT 17.7 % (42.0-52.0); LYMPHOCYTES # 2.3 10^3/ul (0.8-2.9); MEAN CORPUSCULAR HEMOGLOBIN 27.6 pg (29.0-33.0); MEAN CORPUSCULAR HGB CONC 35.6 g/dl (32.0-37.0); MEAN CORPUSCULAR VOLUME 77.6 fl (82.0-101.0); MONOCYTE # 1.2 10^3/ul (0.3-0.9); MONOCYTES % 8.2 % (0.0-11.0); NEUTROPHIL # 11.3 10^3/ul (1.6-7.5); NEUTROPHILS % 74.8 % (39.0-77.0); NUCLEATED RED BLOOD CELLS% 0.2 /100WBC (0.0-0.0); PLATELET COUNT 87 10^3/UL (140-415); POSITIVE DIFF @See below; RED BLOOD COUNT 2.28 10^6/ul (4.70-6.10); RED CELL DISTRIBUTION WIDTH 20.6 % (11.5-14.5)
[2017-05-31 09:11] LABS: HEMOGLOBIN 6.3 g/dl (14.0-18.0)
[2017-05-31 09:27] LABS: ALANINE AMINOTRANSFERASE 329 IU/L (13-69); ALBUMIN 1.5 g/dl (3.3-4.9); ALBUMIN/GLOBULIN RATIO 0.46; ALKALINE PHOSPHATASE 194 IU/L (42-121); ANION GAP 10 (8-16); ASPARTATE AMINO TRANSFERASE 245 IU/L (15-46); BILIRUBIN,TOTAL 7.8 mg/dl (0.2-1.3); BLOOD UREA NITROGEN 33 mg/dl (7-20); CALCIUM 6.9 mg/dl (8.4-10.2); CARBON DIOXIDE 27 mmol/L (21-31); CHLORIDE 93 mmol/L (97-110); CREATININE 1.25 mg/dl (0.61-1.24); GLUCOSE 170 mg/dl (70-220); POTASSIUM 4.5 mmol/L (3.5-5.1); SODIUM 125 mmol/L (135-144); TOTAL PROTEIN 4.7 g/dl (6.1-8.1)
[2017-05-31 09:31] LABS: PATH REVIEW? YES
[2017-05-31 09:38] LABS: LACTIC ACID 2.6 mmol/L (0.5-2.0)
[2017-05-31] MEDS ORDERED: SODIUM CHLORIDE 1 GM TAB PO (13:00)
[2017-05-31] MEDS: SODIUM CHLORIDE 1 GM TAB PO ×2 (13:55→22:23)
[2017-05-31] MEDS: SOD CHLORIDE 0.9% 1,000 ML IV (14:00)
[2017-05-31 15:10] LABS: ADD MAN DIFF? NO
[2017-05-31 15:13] LABS: WHITE BLOOD COUNT 15.1 10^3/ul (4.8-10.8)
[2017-05-31 15:13] LABS: ABNORMAL IP MESSAGE 1; BASOPHILS % 0.1 % (0.0-2.0); EOSINOPHILS # 0.1 10^3/ul (0.0-0.5); EOSINOPHILS % 0.9 % (0.0-7.0); HEMATOCRIT 15.5 % (42.0-52.0); LYMPHOCYTES # 1.9 10^3/ul (0.8-2.9); LYMPHOCYTES % 12.3 % (15.0-51.0); MEAN CORPUSCULAR HEMOGLOBIN 27.8 pg (29.0-33.0); MEAN CORPUSCULAR HGB CONC 35.5 g/dl (32.0-37.0); MEAN CORPUSCULAR VOLUME 78.3 fl (82.0-101.0); MONOCYTE # 1.2 10^3/ul (0.3-0.9); NEUTROPHIL # 11.7 10^3/ul (1.6-7.5); NEUTROPHILS % 77.8 % (39.0-77.0); NUCLEATED RED BLOOD CELLS% 0.3 /100WBC (0.0-0.0); PLATELET COUNT 87 10^3/UL (140-415); POSITIVE DIFF @See below; RED BLOOD COUNT 1.98 10^6/ul (4.70-6.10)
[2017-05-31 15:16] LABS: HEMOGLOBIN 5.5 g/dl (14.0-18.0)
[2017-05-31 15:30] LABS: ALANINE AMINOTRANSFERASE 282 IU/L (13-69); ALBUMIN 1.3 g/dl (3.3-4.9); ALBUMIN/GLOBULIN RATIO 0.43; ALKALINE PHOSPHATASE 177 IU/L (42-121); ANION GAP 11 (8-16); ASPARTATE AMINO TRANSFERASE 193 IU/L (15-46); BILIRUBIN,INDIRECT 1.5 mg/dl (0-1.1); BILIRUBIN,TOTAL 7.2 mg/dl (0.2-1.3); BLOOD UREA NITROGEN 33 mg/dl (7-20); CALCIUM 6.7 mg/dl (8.4-10.2); CARBON DIOXIDE 25 mmol/L (21-31); CHLORIDE 91 mmol/L (97-110); CREATININE 1.39 mg/dl (0.61-1.24); GLUCOSE 196 mg/dl (70-220); POTASSIUM 4.4 mmol/L (3.5-5.1); SODIUM 123 mmol/L (135-144); TOTAL PROTEIN 4.3 g/dl (6.1-8.1)
[2017-05-31 15:34] LABS: INR 1.85; PARTIAL THROMBOPLASTIN TIME 36.9 Sec (25.0-35.0); PROTIME 21.8 Sec (11.9-14.9); PT RATIO 1.7
[2017-05-31] MEDS: Discontinue all previous diabetes medication and insulin orders. XX (18:30)
[2017-05-31] MEDS ORDERED: Treatment of Hypoglycemia: XX (18:30)
[2017-05-31] MEDS ORDERED: DEXTROSE 50% 50 ML SYRINGE IV ×4 (18:30→21:30)
[2017-05-31] MEDS: ACCU-CHEK XX ×6 (18:30→23:30)
[2017-05-31] MEDS ORDERED: INSULIN HUMAN REGULAR 100 UNIT in SOD CHLORIDE 0.9% 99 ML IV (18:30)
[2017-05-31] MEDS ORDERED: INSULIN GLARGINE [LANtus] 3 ML PEN SC (20:00)
[2017-05-31] MEDS: CASPOFUNGIN 50 MG in SOD CHLORIDE 0.9% 250 ML IVPB (21:00)
[2017-05-31] MEDS: HYPOGLYCEMIA PROTOCOL when Glucose is <70 mg/dL or symptomatic <90 mg/dL. XX (21:00)
[2017-05-31] MEDS: Discontinue current oral sulfonylureas (glyburide, glipizide, and/or glimepiride) prior to XX (21:00)
[2017-05-31] MEDS ORDERED: GLUCAGON 1 MG INJ IM (21:30)
[2017-05-31] MEDS ORDERED: GLUCOSE GEL 15 GRAM TUBE BUCCAL (21:30)
[2017-05-31] MEDS ORDERED: GLUCOSE GEL 15 GRAM TUBE PO ×2 (21:30)
[2017-05-31] MEDS: FAMOTIDINE 20 MG INJ IV (22:19)
[2017-05-31] MEDS: INSULIN GLARGINE [LANtus] 3 ML PEN SC (22:22)
[2017-05-31 23:03] LABS: IMMEDIATE SPIN CROSSMATCH 1 7
[2017-05-31] MEDS ORDERED: LORAZEPAM 2 MG INJ IM (23:30)
[2017-06-01 01:41] LABS: HEMATOCRIT 21.4 % (42.0-52.0); HEMOGLOBIN 7.5 g/dl (14.0-18.0)
[2017-06-01] MEDS: SOD CHLORIDE 0.9% 1,000 ML IV ×2 (04:10→17:39)
[2017-06-01] MEDS: MEROPENEM 1 GM/50ML(PMX) 50 ML IVPB ×3 (05:00→22:45)
[2017-06-01 05:46] LABS: ADD MAN DIFF? NO
[2017-06-01 06:00] LABS: BASOPHILS % 0.2 % (0.0-2.0); EOSINOPHILS # 0.1 10^3/ul (0.0-0.5); EOSINOPHILS % 0.8 % (0.0-7.0); HEMATOCRIT 21.7 % (42.0-52.0); HEMOGLOBIN 7.6 g/dl (14.0-18.0); LYMPHOCYTES # 2.6 10^3/ul (0.8-2.9); LYMPHOCYTES % 14.9 % (15.0-51.0); MEAN CORPUSCULAR HEMOGLOBIN 28.1 pg (29.0-33.0); MEAN CORPUSCULAR VOLUME 80.4 fl (82.0-101.0); MONOCYTE # 1.5 10^3/ul (0.3-0.9); MONOCYTES % 8.7 % (0.0-11.0); NEUTROPHIL # 12.8 10^3/ul (1.6-7.5); NEUTROPHILS % 74.3 % (39.0-77.0); NUCLEATED RED BLOOD CELLS # 0.1 10^3/ul (0.0-0.0); NUCLEATED RED BLOOD CELLS% 0.3 /100WBC (0.0-0.0); PLATELET COUNT 114 10^3/UL (140-415); RED CELL DISTRIBUTION WIDTH 20.9 % (11.5-14.5)
[2017-06-01 06:00] LABS: WHITE BLOOD COUNT 17.2 10^3/ul (4.8-10.8)
[2017-06-01 06:27] LABS: MAGNESIUM 1.8 mg/dl (1.7-2.5)
[2017-06-01 06:27] LABS: PHOSPHORUS 2.7 mg/dl (2.5-4.9)
[2017-06-01 07:27] LABS: ALANINE AMINOTRANSFERASE 272 IU/L (13-69); ALBUMIN 1.9 g/dl (3.3-4.9); ALBUMIN/GLOBULIN RATIO 0.52; ALKALINE PHOSPHATASE 243 IU/L (42-121); ANION GAP 12 (8-16); ASPARTATE AMINO TRANSFERASE 188 IU/L (15-46); BILIRUBIN,INDIRECT 2.1 mg/dl (0-1.1); BILIRUBIN,TOTAL 9.7 mg/dl (0.2-1.3); BLOOD UREA NITROGEN 33 mg/dl (7-20); CALCIUM 7.5 mg/dl (8.4-10.2); CARBON DIOXIDE 27 mmol/L (21-31); CHLORIDE 93 mmol/L (97-110); CREATININE 1.36 mg/dl (0.61-1.24); GLUCOSE 159 mg/dl (70-220); POTASSIUM 4.5 mmol/L (3.5-5.1); SODIUM 127 mmol/L (135-144); TOTAL PROTEIN 5.5 g/dl (6.1-8.1)
[2017-06-01] MEDS: SODIUM CHLORIDE 1 GM TAB PO ×3 (08:28→20:21)
[2017-06-01] MEDS: VANCOMYCIN 750 MG in DEXTROSE 5% 150 ML IVPB ×2 (08:28→20:21)
[2017-06-01] MEDS: FAMOTIDINE 20 MG INJ IV ×2 (08:28→20:21)
[2017-06-01] MEDS: NICOTINE (21 MG/24 HR) PATCH TRANSDERM (08:28)
[2017-06-01] MEDS: INSULIN GLARGINE [LANtus] 3 ML PEN SC ×2 (08:37→20:28)
[2017-06-01] MEDS: INSULIN ASPART [NOVOLOG] 3 ML PEN SC ×2 (08:39→12:42)
[2017-06-01] MEDS: ACCU-CHEK XX ×3 (09:50→12:42)
[2017-06-01] MEDS: LIDOCAINE 1% (MPF) 5 ML VIAL SC (15:00)
[2017-06-01] MEDS: SOD CHLORIDE 0.9% 100 ML (15:15)
[2017-06-01 18:41] LABS: HEMATOCRIT 20.6 % (42.0-52.0); HEMOGLOBIN 7.2 g/dl (14.0-18.0)
[2017-06-01] MEDS: INSULIN LISPRO 100 UNIT/ML VIAL SC (18:57)
[2017-06-01] MEDS: CASPOFUNGIN 50 MG in SOD CHLORIDE 0.9% 250 ML IVPB (20:25)
[2017-06-02] MEDS: ACCU-CHEK XX (02:00)
[2017-06-02] MEDS: MEROPENEM 1 GM/50ML(PMX) 50 ML IVPB ×3 (05:31→23:00)
[2017-06-02] MEDS: SOD CHLORIDE 0.9% 1,000 ML IV ×3 (05:32→20:10)
[2017-06-02 06:06] LABS: ADD MAN DIFF? NO
[2017-06-02 06:30] LABS: ABNORMAL IP MESSAGE 1; BASOPHILS % 0.3 % (0.0-2.0); EOSINOPHILS # 0.2 10^3/ul (0.0-0.5); EOSINOPHILS % 1.5 % (0.0-7.0); HEMATOCRIT 20.6 % (42.0-52.0); HEMOGLOBIN 7.1 g/dl (14.0-18.0); LYMPHOCYTES # 2.3 10^3/ul (0.8-2.9); LYMPHOCYTES % 14.6 % (15.0-51.0); MEAN CORPUSCULAR HEMOGLOBIN 28.3 pg (29.0-33.0); MEAN CORPUSCULAR HGB CONC 34.5 g/dl (32.0-37.0); MEAN CORPUSCULAR VOLUME 82.1 fl (82.0-101.0); MONOCYTE # 1.3 10^3/ul (0.3-0.9); NEUTROPHIL # 11.7 10^3/ul (1.6-7.5); NEUTROPHILS % 74.5 % (39.0-77.0); NUCLEATED RED BLOOD CELLS% 0.1 /100WBC (0.0-0.0); PLATELET COUNT 125 10^3/UL (140-415); POSITIVE DIFF @See below; RED BLOOD COUNT 2.51 10^6/ul (4.70-6.10); RED CELL DISTRIBUTION WIDTH 22.6 % (11.5-14.5)
[2017-06-02 06:30] LABS: WHITE BLOOD COUNT 15.7 10^3/ul (4.8-10.8)
[2017-06-02 07:03] LABS: ALANINE AMINOTRANSFERASE 235 IU/L (13-69); ALBUMIN/GLOBULIN RATIO 0.57; ALKALINE PHOSPHATASE 261 IU/L (42-121); ANION GAP 9 (8-16); ASPARTATE AMINO TRANSFERASE 163 IU/L (15-46); BILIRUBIN,INDIRECT 1.7 mg/dl (0-1.1); BILIRUBIN,TOTAL 7.3 mg/dl (0.2-1.3); BLOOD UREA NITROGEN 31 mg/dl (7-20); CALCIUM 7.3 mg/dl (8.4-10.2); CARBON DIOXIDE 29 mmol/L (21-31); CHLORIDE 95 mmol/L (97-110); CREATININE 1.39 mg/dl (0.61-1.24); GLUCOSE 150 mg/dl (70-220); MAGNESIUM 1.8 mg/dl (1.7-2.5); POTASSIUM 4.4 mmol/L (3.5-5.1); SODIUM 129 mmol/L (135-144); TOTAL PROTEIN 5.5 g/dl (6.1-8.1)
[2017-06-02] MEDS: SODIUM CHLORIDE 1 GM TAB PO ×2 (08:09→20:46)
[2017-06-02] MEDS: VANCOMYCIN 750 MG in DEXTROSE 5% 150 ML IVPB ×2 (08:09→21:38)
[2017-06-02] MEDS: NICOTINE (21 MG/24 HR) PATCH TRANSDERM (08:09)
[2017-06-02] MEDS: FAMOTIDINE 20 MG INJ IV ×2 (08:09→20:46)
[2017-06-02] MEDS: INSULIN GLARGINE [LANtus] 3 ML PEN SC ×2 (08:27→21:34)
[2017-06-02] MEDS: INSULIN LISPRO 100 UNIT/ML VIAL SC ×5 (08:27→17:55)
[2017-06-02 15:24] LABS: IMMEDIATE SPIN CROSSMATCH 1 1
[2017-06-02] MEDS: CASPOFUNGIN 50 MG in SOD CHLORIDE 0.9% 250 ML IVPB (21:38)
[2017-06-03] MEDS: ACCU-CHEK XX (02:00)
[2017-06-03] MEDS: MEROPENEM 1 GM/50ML(PMX) 50 ML IVPB ×2 (05:42→15:34)
[2017-06-03] MEDS: INSULIN ASPART [NOVOLOG] 3 ML PEN SC ×2 (07:55→11:50)
[2017-06-03] MEDS: FAMOTIDINE 20 MG INJ IV (08:12)
[2017-06-03] MEDS: NICOTINE (21 MG/24 HR) PATCH TRANSDERM (08:12)
[2017-06-03] MEDS: SODIUM CHLORIDE 1 GM TAB PO (08:12)
[2017-06-03 08:36] LABS: ADD MAN DIFF? NO
[2017-06-03 08:41] LABS: WHITE BLOOD COUNT 14.8 10^3/ul (4.8-10.8)
[2017-06-03 08:41] LABS: ABNORMAL IP MESSAGE 1; BASOPHILS % 0.3 % (0.0-2.0); EOSINOPHILS # 0.2 10^3/ul (0.0-0.5); EOSINOPHILS % 1.3 % (0.0-7.0); HEMATOCRIT 26.3 % (42.0-52.0); HEMOGLOBIN 9.1 g/dl (14.0-18.0); LYMPHOCYTES # 2.2 10^3/ul (0.8-2.9); LYMPHOCYTES % 14.8 % (15.0-51.0); MEAN CORPUSCULAR HEMOGLOBIN 28.9 pg (29.0-33.0); MEAN CORPUSCULAR HGB CONC 34.6 g/dl (32.0-37.0); MEAN CORPUSCULAR VOLUME 83.5 fl (82.0-101.0); MEAN PLATELET VOLUME 11.3 fl (7.4-10.4); MONOCYTE # 1.3 10^3/ul (0.3-0.9); MONOCYTES % 8.6 % (0.0-11.0); NEUTROPHIL # 10.9 10^3/ul (1.6-7.5); NEUTROPHILS % 73.8 % (39.0-77.0); NUCLEATED RED BLOOD CELLS% 0.3 /100WBC (0.0-0.0); PLATELET COUNT 165 10^3/UL (140-415); POSITIVE DIFF @See below; RED BLOOD COUNT 3.15 10^6/ul (4.70-6.10); RED CELL DISTRIBUTION WIDTH 22.2 % (11.5-14.5)
[2017-06-03 08:57] LABS: ANION GAP 12 (8-16); BLOOD UREA NITROGEN 27 mg/dl (7-20); CALCIUM 7.8 mg/dl (8.4-10.2); CARBON DIOXIDE 27 mmol/L (21-31); CHLORIDE 100 mmol/L (97-110); CREATININE 1.34 mg/dl (0.61-1.24); GLUCOSE 93 mg/dl (70-220); POTASSIUM 4.3 mmol/L (3.5-5.1); SODIUM 135 mmol/L (135-144)
[2017-06-03 09:01] LABS: VANCOMYCIN,TROUGH 19.4 ug/ml (10.0-20.0)
[2017-06-03 09:09] LABS: INR 1.23; PROTIME 15.7 Sec (11.9-14.9); PT RATIO 1.2
[2017-06-03 09:11] LABS: ADD UMIC YES; UR ASCORBIC ACID NEGATIVE (NEGATIVE); UR BACTERIA FEW /HPF (NONE SEEN); UR BILIRUBIN (Dip) 1+ mg/dL (NEGATIVE); UR BLOOD (Dip) 3+ mg/dL (NEGATIVE); UR CLARITY SLIGHTLY CLOUDY (CLEAR); UR COLOR AMBER (YELLOW); UR GLUCOSE (Dip) 1+ mg/dL (NEGATIVE); UR KETONES (Dip) NEGATIVE (NEGATIVE); UR LEUKOCYTE ESTERASE (Dip) TRACE Leu/ul (NEGATIVE); UR MUCUS FEW /HPF (NONE SEEN); UR NITRITE (Dip) NEGATIVE (NEGATIVE); UR RBC 24 /HPF (0-5); UR SPECIFIC GRAVITY (Dip) 1.012 (1.003-1.030); UR SQUAMOUS EPITHELIAL CELL FEW /HPF (FEW); UR TOTAL PROTEIN (Dip) NEGATIVE (NEGATIVE); UR UROBILINOGEN (Dip) 2+ mg/dL (NEGATIVE); UR WBC 12 /HPF (0-5)
[2017-06-03 09:15] LABS: OCCULT BLOOD STOOL NEGATIVE (NEGATIVE)
[2017-06-03] MEDS: SOD CHLORIDE 0.9% 1,000 ML IV ×2 (09:30→13:17)
[2017-06-03 12:35] LABS: AMMONIA 17 umol/l (9-30)
[2017-06-03] MEDS: VANCOMYCIN 1.5 GM in SOD CHLORIDE 0.9% 250 ML IVPB (16:29)
[2017-06-03] MEDS ORDERED: CASPOFUNGIN 35 MG in SOD CHLORIDE 0.9% 250 ML IVPB (21:00)
[2017-06-03] MEDS ORDERED: BENZTROPINE 1 MG TAB PO (21:00)
[2017-06-03] MEDS ORDERED: INSULIN GLARGINE [LANtus] 3 ML PEN SC (21:00)
[2017-06-03] MEDS ORDERED: RISPERIDONE 1 MG TAB PO (21:00)
== END 2017-06-03 17:35 | disposition left against medical advice (07) | DRG 871 ==
LOC: MS4 05-30 17:45 → TEL 06-02 17:47 → ICU 05-31 17:51 → E/R 15:57 → TEL 23:25 → ICU 05-26 20:34 → TEL 19:44
PROVIDERS: Hospitalist
PROC: 06HM33Z Insertion of Infusion Device into Right Femoral Vein, Percutaneous Approach (ICD-10-PCS; principal; 2017-05-27)
PROC: 02HV33Z Insertion of Infusion Device into Superior Vena Cava, Percutaneous Approach (ICD-10-PCS; 2017-05-27)
PROC: 30233N1 Transfusion of Nonautologous Red Blood Cells into Peripheral Vein, Percutaneous Approach (ICD-10-PCS; 2017-05-30)
PROC: 30233K1 Transfusion of Nonautologous Frozen Plasma into Peripheral Vein, Percutaneous Approach (ICD-10-PCS; 2017-05-31)
DX: A41.9 Sepsis, unspecified organism (principal); R65.21 Severe sepsis with septic shock; K72.00 Acute and subacute hepatic failure without coma; N17.0 Acute kidney failure with tubular necrosis; G92 Toxic encephalopathy; E87.1 Hypo-osmolality and hyponatremia; E87.4 Mixed disorder of acid-base balance; D62 Acute posthemorrhagic anemia; D68.9 Coagulation defect, unspecified; I24.0 Acute coronary thrombosis not resulting in myocardial infarction; E87.2 Acidosis; B37.49 Other urogenital candidiasis; L03.116 Cellulitis of left lower limb; L03.115 Cellulitis of right lower limb; M86.8X7 Other osteomyelitis, ankle and foot; E11.649 Type 2 diabetes mellitus with hypoglycemia without coma; E86.0 Dehydration; R11.2 Nausea with vomiting, unspecified; E78.5 Hyperlipidemia, unspecified; E66.01 Morbid (severe) obesity due to excess calories; Z68.35 Body mass index [BMI] 35.0-35.9, adult; I25.10 Atherosclerotic heart disease of native coronary artery without angina pectoris; I25.5 Ischemic cardiomyopathy; F20.9 Schizophrenia, unspecified; F17.200 Nicotine dependence, unspecified, uncomplicated; R13.10 Dysphagia, unspecified; E87.5 Hyperkalemia; I12.9 Hypertensive chronic kidney disease with stage 1 through stage 4 chronic kidney disease, or unspecified chronic kidney disease; D63.1 Anemia in chronic kidney disease; I25.2 Old myocardial infarction; E11.65 Type 2 diabetes mellitus with hyperglycemia; R31.9 Hematuria, unspecified; Z78.1 Physical restraint status; E11.69 Type 2 diabetes mellitus with other specified complication; E11.42 Type 2 diabetes mellitus with diabetic polyneuropathy; E11.621 Type 2 diabetes mellitus with foot ulcer; E11.21 Type 2 diabetes mellitus with diabetic nephropathy; L97.529 Non-pressure chronic ulcer of other part of left foot with unspecified severity; B95.62 Methicillin resistant Staphylococcus aureus infection as the cause of diseases classified elsewhere; R40.1 Stupor
CPT/HCPCS: 36415; 36430; 36569; 36600; 70450; 71045; 74176; 76705; 80048; 80053; 80061; 80076; 80202; 80306; 80307; 81001; 81003; 82140; 82270; 82533; 82550; 82553; 82570; 82803; 82962; 83036; 83605; 83690; 83735; 84100; 84145; 84155; 84300; 84443; 84484; 85014; 85018; 85025; 85335; 85610; 85651; 85730; 86140; 86644; 86704; 86709; 86803; 86850; 86900; 86901; 86920; 87040; 87081; 87086; 87340; 89190; 92526; 92610; 93005; 93306; 95819; 96374; 96375; 97163; 97166; 97168; 97530; 99217; 99285-25; G0378